=== PATIENT | male | born 1960 | race Caucasian/White ===

== ENCOUNTER → 2017-05-15 | Outpatient (CLI) | payer BC | END | disposition home or self-care (01) | LOC: GMAB 10:36 | PROVIDERS: ATTEND Family Medicine | DX: Z00.00 Encounter for general adult medical examination without abnormal findings (principal) ==

== ENCOUNTER → 2017-10-04 | Outpatient (CLI) | payer BC | END | disposition home or self-care (01) | LOC: GMAB 17:03 | PROVIDERS: ATTEND Family Medicine | DX: M79.7 Fibromyalgia (principal) ==

== ENCOUNTER → 2017-11-27 | Outpatient (CLI) | payer BC ==
--- NOTE | 2017-11-27 14:33 | MRI ---
EXAM DESCRIPTION: Brain w/o Contrast: MRI. CLINICAL HISTORY: Parkinson's disease COMPARISON: Radiographs of the thoracic and cervical spines on this visit. TECHNIQUE: Multiplanar, high-field MRI unit, multiple diffusion sequences, multiple conventional sequences without contrast. FINDINGS: Small foci of abnormal bright FLAIR and T2-weighted signal in the bilateral frontal lobe subcortical white matter and in the subcortical white matter of the bilateral parietal and occipital lobes at the supraventricular level.. Normal signal in the bilateral basal ganglia. No hemorrhage, no cerebral edema, no mass-effect. Normal signal in the brainstem and cerebellar hemispheres. Suspect prominent perivascular space abutting the right cerebellar tonsil. No hemorrhage, no cerebral edema, no mass-effect. Concordance of the diffusion and non-diffusion sequences with no diffusion restriction. Cortical sulci, ventricles, and other CSF spaces, and the subdural spaces are normally configured for patients age. No effacement or displacement. No midline shift. No extra-axial hemorrhage. Normal flow signal void in the major vessels of the [place], and the venous sinuses. IACs are symmetric bilaterally. Small focal fluid signal in the inferior right mastoid air cells; normal signal in the left mastoid air cells. No mass effect in the bilateral cerebellopontine angles. Pituitary gland occupies most of the sella. Base of the cerebellar tonsils is at the level of the foramen magnum. Minimal mucosal periosteal thickening in the paranasal sinuses. Prominent eliel bullosa in the left middle turbinate is deviating the posterior septum. Smaller eliel bullosa on the right The bony calvarium is intact. IMPRESSION: 1. Bilateral small scattered foci of abnormal white matter signal without hemorrhage or mass effect. No diffusion restriction. These can be related to cerebral microvascular disease, migraine headaches, vasculitis, inflammatory process, or demyelination process. Correlate with clinical history. 2. Normal noncontrast MRI scan with no evidence of acute or subacute infarction (diffusion restriction). Electronically signed by: Teodoro Vincent MD 11/27/2017 2:32 PM CDT
--- NOTE | 2017-11-27 14:51 | MRI ---
EXAM DESCRIPTION: Cervical Spine: MRI. CLINICAL HISTORY: Cervical disc disorder at C4-C5 level with radiculopathy COMPARISON: MRI scan of the brain and MRI scan of the thoracic spine on this visit. TECHNIQUE: Multiplanar MRI, multiple sequences, non-contrast High-field. FINDINGS: C2-C3: Minimal disc desiccation. Disc space maintained. No disc bulging. Minimal facet arthrosis bilaterally. Canal and foramina are patent. C3-C4 no disc desiccation with disc space maintained. Left facet arthrosis and left uncinate spur. Borderline left neural foraminal stenosis. Right neuroforamen patent. Left paracentral moderate canal narrowing. C4-C5: Disc desiccation and minimal disc space loss. Minimal posterior disc bulging not abutting the cord. Bilateral facet arthrosis, more right than left. Moderate neural foraminal narrowing. Mild canal narrowing. C5-C6: Moderate disc space loss. Posterior Modic type II endplate reactive changes. Minimal anterior disc bulge. Posterior broad-based disc osteophyte complex bulge abutting the cord. Moderate right neural foraminal narrowing. Left uncinate spur and mild left neural foraminal stenosis. Posterior ligament hypertrophy. Moderate canal narrowing. Bilateral facets negative. C6-7: Minimal desiccation and tiny posterior midline bulge not abutting the cord. Mild canal narrowing. Right neuroforamen patent and mild narrowing of the left neural foramen. Bilateral facets are negative. Normal signal in the remaining discs with no bulging. Disc spaces preserved. Canal and neural foramina are patent. Facets are unremarkable. No cord compression or cord edema. Spine is kyphotic C2-C5. Atlantoaxial joint is minimally hypertrophied. Base of the cerebellar tonsils is at the level of the foramen magnum. Paravertebral soft tissues unremarkable. No significant scoliosis. Vertebral bodies are not compressed at any level. Normal marrow signal in the remaining vertebral bodies and the posterior elements. IMPRESSION: 1. Moderate spondylosis and disc space loss C5-6. Posterior disc osteophyte complex bulge abutting the cord. Posterior ligament hypertrophy. Left neural foraminal stenosis. Correlate for left C6 radiculopathy. 2. Bilateral facet arthrosis C4-5 posterior disc bulge and minimal disc space loss. Bilateral moderate neural foraminal narrowing. 3. Left facet arthrosis and left uncinate spur at C3-4 with borderline left neural foraminal stenosis. Correlate for left C4 radiculopathy.. Electronically signed by: Teodoro Vincent MD 11/27/2017 2:50 PM CDT
--- NOTE | 2017-11-27 15:09 | MRI ---
EXAM DESCRIPTION: Thoracic Spine w/o Contrast: Magnetic Resonance Imaging. CLINICAL HISTORY: Other spondylosis with radiculopathy, thoracic region COMPARISON: MRI scan of the brain without contrast and MRI scan of the cervical spine without contrast on this visit. TECHNIQUE: Multiplanar, multiple standard sequences, non contrast MRI, thoracic spine. FINDINGS: Geographic type, bright T1 and T2 weighted signal can be seen in the T5 vertebral body, and T10 vertebral body. There is also bright signal on inversion recovery sequence at T10 but heterogeneous. Defect in the superior T4 endplate, but no marrow edema like signal. No compression type vertebral body fractures at any level. Minimal disc desiccation and tiny posterior disc bulging is at T3-4, T2-3, T4-5, T6-7, and T7-8. No cord impingement or canal stenosis. No neural foraminal stenosis in any of these levels. Remaining discs demonstrate normal signal. Disc spaces are preserved. Canal and foramina are patent. No scoliosis. Facet joints are unremarkable. Conus terminates at T12-L1. Paravertebral soft tissues are unremarkable. Normal marrow signal in the remaining vertebral bodies and the posterior elements. Normal signal in the cord with no compression or cord edema. Vertebral bodies are not compressed at any other level. IMPRESSION: 1. Schmorl's node versus old compression injury anterior superior T4 endplate. No marrow edema. Minimal desiccation of the disc and posterior bulge. 2. Desiccation of several discs noted with posterior bulging but no cord impingement. No canal or foraminal stenosis at any level. 3. Hemangiomas in the vertebral bodies at T5 and T10. 4. No cord compression or cord edema. Electronically signed by: Teodoro Vincent MD 11/27/2017 3:08 PM CDT
== END ==
LOC: MRI 07:10
PROVIDERS: ATTEND Psychiatry & Neurology Neurology
DX: G20 Parkinson's disease (principal); M50.121 Cervical disc disorder at C4-C5 level with radiculopathy; M47.24 Other spondylosis with radiculopathy, thoracic region; D18.09 Hemangioma of other sites; M47.892 Other spondylosis, cervical region

== ENCOUNTER → 2018-04-10 | Outpatient (CLI) | payer BC | LOC: GMAE 07:56 | PROVIDERS: ATTEND Family Medicine | DX: Z00.00 Encounter for general adult medical examination without abnormal findings (principal); M79.1 Myalgia ==

== ENCOUNTER → 2018-05-27 | Outpatient (CLI) | payer BC ==
--- NOTE | 2018-05-27 11:18 | MRI ---
EXAM DESCRIPTION: Lumbar Spine w/o Contrast : Magnetic Resonance Imaging. CLINICAL HISTORY: RADICULOPATHY COMPARISON: MRI scan thoracic and cervical spines 11/27/2017. TECHNIQUE: Multiplanar, multiple standard sequences, non contrast MRI, lumbar spine. FINDINGS: L5-S1: Normal signal in the disc and disc space preserved. Moderate narrowing of the right foramen and mild narrowing of the left foramen. Posterior elements unremarkable. L4-5: Minimal disc desiccation no significant posterior bulge. Minimal flavum ligament hypertrophy. Right moderate foraminal narrowing. Borderline left foraminal stenosis, due to disc bulge into the base of the foramen, abutting the left L4 nerve. Mild canal narrowing. L3-4: Disc desiccation and minimal anterior bulging, and minimal anterior endplate ridging. Minimal disc space loss. Hypertrophy of the flavum ligaments with mild canal narrowing. Left mild foraminal narrowing; right moderate foraminal narrowing due to disc bulge, abutting the right L3 nerve. L2-3: Normal signal in the disc and disc space preserved. Posterior elements unremarkable. Canal and foramina are patent. L1-2: Disc space preserved and normal signal in the disc. Posterior elements are unremarkable. Canal and foramina are patent. T12-L1: Disc space preserved and normal signal in the disc. Posterior elements are unremarkable. Canal and foramina are patent. Conus terminates just above the disc space. Reduction of normal lordosis with no scoliosis. Paravertebral soft tissues are unremarkable. Normal marrow signal in the remaining vertebral bodies and the posterior elements. Vertebral bodies are not compressed at any level. IMPRESSION: 1. Multiple levels of mild to moderate foraminal narrowing. Disc desiccation at some levels. Flavum ligament hypertrophy at some levels. Facets show no significant arthrosis. Probable early mild spondylosis at L3-4 anterior. 2. Borderline left foraminal stenosis at L4-5 secondary to disc bulge and bony margins. Correlate for left L4 radiculopathy. 3. Moderate right foraminal narrowing at L3-4 due to bulging disc. Electronically signed by: Teodoro Vincent MD 05/27/2018 11:17 AM CDT
== END ==
LOC: MRI 07:00
PROVIDERS: ATTEND Neurological Surgery
DX: M51.16 Intervertebral disc disorders with radiculopathy, lumbar region (principal); M48.061 Spinal stenosis, lumbar region without neurogenic claudication

== ENCOUNTER → 2018-07-08 | Outpatient (CLI) | payer BC ==
--- NOTE | 2018-07-08 18:02 | US ---
EXAM DESCRIPTION: Liver: ULTRASOUND. CLINICAL HISTORY: ABNORMAL LIVER FUNCTION STUDY COMPARISON: None. TECHNIQUE: Transabdominal scannin-dimensional and Doppler modes. FINDINGS: Gallbladder: Contains multiple stones mobile with patient change in position. Largest stone measures 6.5 mm. No fluid around the gallbladder. No wall thickening. 2.1 mm. Non-tender with transducer pressure. Common bile duct: caliber 3.2 mm within normal limits. Liver: normal echogenicity; contour liver capsule smooth where seen. No fluid around the liver. Intrahepatic biliary ducts normal caliber. Doppler hepatopedal flow portal vein. 9.3 mm. Long axis right lobe 17.8 cm. Pancreas: normal size and echogenicity. Duct measures 2.6 mm greatest diameter. Right kidney: long axis measures 9.6 cm. 6 x 5 x 5 mm echogenic nodule on the cortex with smooth margins, otherwise normal Echogenicity. Normal cortical thickness. No hydronephrosis or perinephric fluid. IMPRESSION: 1. Minimal enlargement of the liver but normal ducts in vascularity. Normal echogenicity with smooth capsule. No fluid. Normal ultrasound of the pancreas with minimal prominence of the pancreatic duct. 2. Multiple gallstones with no wall thickening or fluid. Nontender during scanning with transducer pressure. Normal caliber of the common bile duct. No ascites. 3. Normal ultrasound of the right kidney, except for small fatty nodule in the cortex with maximum diameter 6 mm. This finding not clinically significant. Electronically signed by: Teodoro Vincent MD 07/08/2018 5:52 PM CDT
== END ==
LOC: LAB.O 12:51
PROVIDERS: ATTEND Family Medicine
DX: R94.5 Abnormal results of liver function studies (principal); M79.7 Fibromyalgia; K80.20 Calculus of gallbladder without cholecystitis without obstruction

== ENCOUNTER → 2019-03-11 | Outpatient (CLI) | payer BC | LOC: GMAE 11:52 | PROVIDERS: ATTEND Family Medicine | DX: Z00.00 Encounter for general adult medical examination without abnormal findings (principal) ==